=== PATIENT | female | born 1955 | race Caucasian/White ===

== ENCOUNTER → 2017-02-07 | Outpatient (REF) | payer BC | LOC: M SFHCCLAY 11:21 | PROVIDERS: ATTEND Nurse Practitioner Family | DX: N76.0 Acute vaginitis (principal) ==

== ENCOUNTER → 2017-05-25 | Outpatient (REF) | payer BC ==
[2017-05-25 11:43] LABS: MEAN CORPUSCULAR HEMOGLOBIN 30.1 pg (27.0-33.0); MEAN CORPUSCULAR HGB CONC 34.6 g/dl (32.0-36.5); RED CELL DISTRIBUTION WIDTH 13.2 % (11.5-14.5); WHITE BLOOD COUNT 4.9 K/mm3 (4.0-10.0)
[2017-05-25 12:30] LABS: ALBUMIN 3.7 GM/DL (3.2-5.2); ALBUMIN/GLOBULIN RATIO 1.09 (1.00-1.93); BILIRUBIN,TOTAL 0.6 MG/DL (0.2-1.0); CALCIUM LEVEL 8.7 MG/DL (8.5-10.1); CREATININE FOR GFR 1.12 MG/DL (0.55-1.02); POTASSIUM SERUM 4.8 MEQ/L (3.5-5.1); TOTAL PROTEIN 7.1 GM/DL (6.4-8.2)
== END ==
LOC: M SFHCCLAY 07:50
PROVIDERS: ATTEND Family Medicine
DX: K21.9 Gastro-esophageal reflux disease without esophagitis (principal); E78.00 Pure hypercholesterolemia, unspecified; M85.80 Other specified disorders of bone density and structure, unspecified site

== ENCOUNTER → 2017-06-07 | Outpatient (CLI) | payer BC ==
--- NOTE | 2017-06-07 11:50 | REPMRS ---
Patient History The patient states she has not had a clinical breast exam in over a year. Patient is postmenopausal. Family history of breast cancer in mother at age 50 or over and breast cancer in 2 paternal cousins. Benign excisional biopsy of the left breast. Took hormonal contraceptives for 2 years. Digital Woman Screen Mammo: June 07, 2017 - Exam #: [id number] Bilateral CC and MLO view(s) were taken. Technologist: Subha Gandara Technologist Prior study comparison: June 01, 2016, digital woman screen mammo performed at [facility]. June 01, 2015, digital woman screen mammo performed at [facility]. May 19, 2014, bilateral bilat screen digital mammo, performed at [facility] ([facility]). FINDINGS: There are scattered fibroglandular densities. There is a moderate amount of residual fibroglandular tissue which is fairly symmetric. There is no interval development of dominant mass, architectural distortion, or clustered microcalcification typical of malignancy. There has been no change in the appearance of the mammogram from the prior studies. ASSESSMENT: BI-RADS/ACR category 1 mammogram. Negative. Recommendation Routine screening mammogram of both breasts in 1 year (for women over age 40). This mammogram was interpreted with the aid of an FDA-approved computer-aided dectection system. Electronically Signed By: Sal Weiss MD 06/07/17 1974
== END ==
LOC: M WHC 11:07
PROVIDERS: ATTEND Family Medicine
DX: Z12.31 Encounter for screening mammogram for malignant neoplasm of breast (principal); Z78.0 Asymptomatic menopausal state; Z80.3 Family history of malignant neoplasm of breast; Z92.0 Personal history of contraception

== ENCOUNTER → 2018-06-04 | Outpatient (REF) | payer BC ==
[2018-06-04 11:50] LABS: HEMATOCRIT 40.8 % (36.0-47.0); HEMOGLOBIN 13.7 g/dl (12.0-15.5); MEAN CORPUSCULAR HEMOGLOBIN 29.1 pg (27.0-33.0); MEAN CORPUSCULAR HGB CONC 33.6 g/dl (32.0-36.5); MEAN CORPUSCULAR VOLUME 86.8 fl (80.0-96.0); PLATELET COUNT, AUTOMATED 220 10^3/uL (150-450); RED CELL DISTRIBUTION WIDTH 13.1 % (11.5-14.5); WHITE BLOOD COUNT 6.7 10^3/uL (4.0-10.0)
[2018-06-04 13:09] LABS: ALBUMIN 3.7 GM/DL (3.2-5.2); ALKALINE PHOSPHATASE 68 U/L (45-117); ALT/SGPT 15 U/L (12-78); ANION GAP 6 MEQ/L (8-16); AST/SGOT 16 U/L (7-37); BILIRUBIN,TOTAL 0.5 MG/DL (0.2-1.0); BLOOD UREA NITROGEN 19 MG/DL (7-18); CARBON DIOXIDE LEVEL 30 MEQ/L (21-32); CHLORIDE LEVEL 105 MEQ/L (98-107); CREATININE FOR GFR 1.18 MG/DL (0.55-1.30); GLOMERULAR FILTRATION RATE 49.7 (>45); GLUCOSE, FASTING 84 MG/DL (70-100); POTASSIUM SERUM 4.3 MEQ/L (3.5-5.1); SODIUM LEVEL 141 MEQ/L (136-145); TOTAL PROTEIN 7.3 GM/DL (6.4-8.2)
[2018-06-04 15:40] LABS: ALBUMIN/GLOBULIN RATIO 1.03 (1.00-1.93)
== END ==
LOC: M SFHCCLAY 08:07
DX: Z00.00 Encounter for general adult medical examination without abnormal findings (principal)
CPT/HCPCS: 84443

== ENCOUNTER → 2018-06-07 | Outpatient (CLI) | payer BC | LOC: M WHC 12:52 | DX: Z12.31 Encounter for screening mammogram for malignant neoplasm of breast (principal); Z82.62 Family history of osteoporosis; M85.851 Other specified disorders of bone density and structure, right thigh; M85.852 Other specified disorders of bone density and structure, left thigh | CPT/HCPCS: 77067 ==

== ENCOUNTER → 2019-05-30 | Outpatient (REF) | payer BC ==
[~2019-05-30] MED LIST: CIPR500T3 PO; DICL1GEL3 TOP; EXCETAB33 PO; METR-265 PO; PROBCAP14 PO; VIAC1CHW PO
[2019-05-30 11:50] LABS: HEMATOCRIT 42.6 % (36.0-47.0); HEMOGLOBIN 14.3 g/dl (12.0-15.5); MEAN CORPUSCULAR HEMOGLOBIN 29.3 pg (27.0-33.0); MEAN CORPUSCULAR HGB CONC 33.6 g/dl (32.0-36.5); MEAN CORPUSCULAR VOLUME 87.3 fl (80.0-96.0); PLATELET COUNT, AUTOMATED 216 10^3/uL (150-450); RED BLOOD COUNT 4.88 10^6/uL (4.00-5.40); WHITE BLOOD COUNT 13.8 10^3/uL (4.0-10.0)
[2019-05-30 12:32] LABS: ALBUMIN 3.8 GM/DL (3.2-5.2); BILIRUBIN,TOTAL 0.8 MG/DL (0.2-1.0); CALCIUM LEVEL 9.6 MG/DL (8.8-10.2); CHOLESTEROL RISK RATIO 2.218 (<5); CREATININE FOR GFR 1.43 MG/DL (0.55-1.30); GLOMERULAR FILTRATION RATE 39.7 (>45); POTASSIUM SERUM 4.1 MEQ/L (3.5-5.1); THYROID STIMULATING HORMONE 1.36 uIU/ML (0.358-3.740); TOTAL PROTEIN 7.2 GM/DL (6.4-8.2)
== END ==
LOC: M SFHCCLAY 07:27
PROVIDERS: ATTEND Family Medicine
DX: Z00.00 Encounter for general adult medical examination without abnormal findings (principal); E78.00 Pure hypercholesterolemia, unspecified; K57.30 Diverticulosis of large intestine without perforation or abscess without bleeding

== ENCOUNTER → 2019-06-05 | Outpatient (REF) | payer BC ==
[2019-06-05 17:25] LABS: ALBUMIN 3.6 GM/DL (3.2-5.2); BILIRUBIN,TOTAL 0.6 MG/DL (0.2-1.0); CALCIUM LEVEL 9.7 MG/DL (8.8-10.2); CREATININE FOR GFR 1.23 MG/DL (0.55-1.30); GLOMERULAR FILTRATION RATE 47.3 (>45); POTASSIUM SERUM 4.1 MEQ/L (3.5-5.1); TOTAL PROTEIN 7.3 GM/DL (6.4-8.2)
[2019-06-05 17:27] LABS: BASO # 0.1 10^3/uL (0.0-0.2); BASO % 0.6 % (0.0-1.0); EOS # 0.2 10^3/uL (0.0-0.5); EOS % 1.8 % (0.0-3.0); HEMATOCRIT 42.1 % (36.0-47.0); HEMOGLOBIN 14.1 g/dl (12.0-15.5); LYMPH # 2.1 10^3/uL (1.5-5.0); LYMPH % 16.8 % (24.0-44.0); MEAN CORPUSCULAR HEMOGLOBIN 29.6 pg (27.0-33.0); MEAN CORPUSCULAR HGB CONC 33.5 g/dl (32.0-36.5); MEAN CORPUSCULAR VOLUME 88.3 fl (80.0-96.0); MONO % 8.3 % (0.0-5.0); NEUTROPHILS # 8.9 10^3/uL (1.5-8.5); PLATELET COUNT, AUTOMATED 291 10^3/uL (150-450); RED BLOOD COUNT 4.77 10^6/uL (4.00-5.40); WHITE BLOOD COUNT 12.4 10^3/uL (4.0-10.0)
== END ==
LOC: M SFHCCLAY 09:22
PROVIDERS: ATTEND Family Medicine
DX: K57.92 Diverticulitis of intestine, part unspecified, without perforation or abscess without bleeding (principal)

== ENCOUNTER 2019-06-07 01:26 | Inpatient (IN) | payer BC ==
[~2019-06-07] VITALS: Ht 162.6 cm; Wt 64.2 kg
[2019-06-07 02:40] LABS: BASO # 0.1 10^3/uL (0.0-0.2); BASO % 0.7 % (0.0-1.0); EOS # 0.3 10^3/uL (0.0-0.5); EOS % 2.1 % (0.0-3.0); HEMATOCRIT 39.7 % (36.0-47.0); HEMOGLOBIN 13.4 g/dl (12.0-15.5); LYMPH # 1.9 10^3/uL (1.5-5.0); LYMPH % 13.5 % (24.0-44.0); MEAN CORPUSCULAR HEMOGLOBIN 29.5 pg (27.0-33.0); MEAN CORPUSCULAR HGB CONC 33.8 g/dl (32.0-36.5); MEAN CORPUSCULAR VOLUME 87.3 fl (80.0-96.0); MONO # 1.3 10^3/uL (0.0-0.8); MONO % 9.5 % (0.0-5.0); NEUTROPHILS # 10.4 10^3/uL (1.5-8.5); NEUTROPHILS % 73.6 % (36.0-66.0); PLATELET COUNT, AUTOMATED 283 10^3/uL (150-450); RED BLOOD COUNT 4.55 10^6/uL (4.00-5.40); WHITE BLOOD COUNT 14.1 10^3/uL (4.0-10.0)
[2019-06-07 03:05] LABS: ALBUMIN 3.3 GM/DL (3.2-5.2); ALT/SGPT 13 U/L (12-78); BILIRUBIN,DIRECT 0.2 MG/DL (0.0-0.2); BILIRUBIN,TOTAL 0.5 MG/DL (0.2-1.0); BLOOD UREA NITROGEN 9 MG/DL (7-18); CALCIUM LEVEL 9.2 MG/DL (8.8-10.2); CARBON DIOXIDE LEVEL 28 MEQ/L (21-32); CHLORIDE LEVEL 100 MEQ/L (98-107); CREATININE FOR GFR 1.36 MG/DL (0.55-1.30); GLOMERULAR FILTRATION RATE 42.1 (>45); GLUCOSE, FASTING 123 MG/DL (70-100); LIPASE 159 U/L (73-393); POTASSIUM SERUM 3.8 MEQ/L (3.5-5.1); SODIUM LEVEL 136 MEQ/L (136-145); TOTAL PROTEIN 7.2 GM/DL (6.4-8.2)
[2019-06-07] MEDS ORDERED: NS 1,000 ML IV ONE ×2 (04:30→22:15)
[2019-06-07] MEDS ORDERED: ONDANSETRON 4MG/2ML VIAL (J2405) As Ordered ONE (05:09)
[2019-06-07] MEDS ORDERED: MORPHINE 4 MG/ML 1ML VIAL/SYRINGE (J2270) As Ordered ONE (05:09)
[2019-06-07] MEDS ORDERED: ACETAMINOPHEN 325 MG TAB As Ordered ONE (05:10)
[2019-06-07] MEDS: MORPHINE 4 MG/ML 1ML VIAL/SYRINGE (J2270) IV PRN ×2 (05:14→09:56)
[2019-06-07] MEDS ORDERED: ACETAMINOPHEN TAB 650MG DOSE (2X325MG) PO ONE (05:15)
[2019-06-07] MEDS ORDERED: ONDANSETRON 4MG/2ML VIAL (J2405) IV ONE (05:15)
[2019-06-07] MEDS ORDERED: ISOVUE-370 76% 100ML VIAL (Q9967) As Ordered ONE (05:17)
--- NOTE | 2019-06-07 06:35 | REPVR ---
EXAM: CT Abdomen and Pelvis With Contrast EXAM DATE/TIME: 06/07/2019 5:12 AM CLINICAL HISTORY: 63 years old, female; Abdominal pain; Localized; Left lower quadrant (llq); Additional info: Llq abd pain, HX of divertic TECHNIQUE: Imaging protocol: Computed tomography of the abdomen and pelvis with intravenous contrast. Radiation optimization: All CT scans at this facility use at least one of these dose optimization techniques: automated exposure control; mA and/or kV adjustment per patient size (includes targeted exams where dose is matched to clinical indication); or iterative reconstruction. Contrast material: ISO; Contrast volume: 100 ml; Contrast route: AC; COMPARISON: No relevant prior studies available. FINDINGS: Liver: There is ill-defined mildly enhancing process in the right hepatic lobe on axial image 17. Gallbladder and bile ducts: The patient is status post cholecystectomy. The CBD is dilated measuring up to 1.1 cm. Pancreas: There is mild pancreatic ductal dilatation measuring up to 5 mm in the head region. Spleen: Normal. No splenomegaly. Adrenals: Normal. No mass. Kidneys and ureters: Normal. No hydronephrosis. Stomach and bowel: There is extensive sigmoid colon diverticulosis with thickening of the colon in the pelvis coupled with significant pericolonic stranding. Appendix: No evidence of appendicitis. Intraperitoneal space: Unremarkable. No free air. No significant fluid collection. Vasculature: Unremarkable. No abdominal aortic aneurysm. Lymph nodes: Unremarkable. No enlarged lymph nodes. Bladder: Unremarkable as visualized. Reproductive: The patient is status post hysterectomy. There is no adnexal mass. Bones/joints: Unremarkable. No acute fracture. Soft tissues: Unremarkable. IMPRESSION: 1. Sigmoid colon diverticulosis with CT findings of acute diverticulitis. No abscess formation seen at this time. 2. Status post cholecystectomy. 3. Diffusely dilated CBD up to 1.1 cm with mild pancreatic ductal dilatation at 5 mm. Ampullary stricture or obstructive process cannot be excluded. Correlate with patient's symptoms, LFTs and bilirubin level. If indicated MRCP may be obtained for further evaluation. 4. 1.4 cm faint ill defined right hepatic dome hyperdensity. Further evaluation with MRI of the liver with contrast and correlation with clinical history and AFP is suggested. Electronically signed by: Wojciech Lopez On 06/07/2019 06:34:29 AM
[2019-06-07] MEDS ORDERED: PIPERACILLIN/TAZOBACTAM SOD 3.375 GM in D5W MINI-BAG PLUS 50 ML IV ONE (07:15)
[2019-06-07] MEDS ORDERED: VIAC1CHW PO (07:47)
[2019-06-07] MEDS ORDERED: PROBCAP14 PO (07:47)
[2019-06-07] MEDS ORDERED: DICL1GEL3 TOP (07:47)
[2019-06-07] MEDS ORDERED: CIPR500T3 PO ×2 (07:47)
[2019-06-07] MEDS ORDERED: METR-265 PO (07:47)
[2019-06-07] MEDS ORDERED: EXCETAB33 PO (07:47)
[2019-06-07] MEDS: NS 1,000 ML IV SCH (13:03)
[2019-06-07 13:15] VITALS: BP 104/59
[2019-06-07] MEDS ORDERED: ONDANSETRON 4MG/2ML VIAL (J2405) IV PRN (13:15)
[2019-06-07] MEDS ORDERED: MORPHINE 4 MG/ML 1ML VIAL/SYRINGE (J2270) IV PRN (13:15)
--- NOTE | 2019-06-07 13:25 | HPEPDOC ---
General Date of Admission 06/07/2019 Date of Service: Jun 07, 2019 Chief Complaint The patient is a 63-year-old female admitted with a reason for visit of Abd Pain. Source: Patient, RN/MD, Old records Exam Limitations: No limitations Severity: Moderate History of Present Illness 63 year old female with PMH of diverticulosis and diverticutitis (last attack 5 years ago), sciatica presented to the ED with abdominal pain for 12 days. She was diagnosed with diverticulitis on 05/30 and started on oral antibiotics. She went to see her PMD again on 03/05 when she was due for her annual check up and said her pain has not improved at all so antibiotics were changed to cipro and flagyl which she has been taking for the past 2 days but overnight her pain had worsened a lot and she could not tolerate it any more and came ot the ED. SHe has been constipated for the past 2 weeks as she had pulled a mucle at her lower back 2 weeks ago and her sciatica was bothering her and she was taking ibuprofens. So earlier this week she took miralax and now is having diarrhea also. no blood in stool. He abdominal pain is located in the left illiac fossa and hypogastrium, Dull aching in nature, 7/10 in intensity . it goes up to the left upper quadrant. CT abdomen an dpelvis shows Sigmoid colon diverticulosis with CT findings of acute diverticulitis. No abscess formation seen at this time. Pateint admitted for acute diverticulitis. Home Medications Scheduled Calcium Carb/Vitamin D3/Vit K1 (Viactiv 650 mg-12.5 Mcg Chew) 1 Each Tab.chew, 1 CHEW PO DAILY, (Reported) Ciprofloxacin HCl (Ciprofloxacin HCl) 500 Mg Tablet, 500 MG PO BID, (Reported) STARTED 06/05 FOR 10 DAYS Lactobacillus Acidophilus (Probiotic) 1 Each Capsule, 1 CAP PO DAILY, (Reported) Metronidazole (Metronidazole) 500 Mg Tablet, 500 MG PO TID, (Reported) STARTED 06/05 FOR 10 DAYS Scheduled PRN Aspirin/Acetaminophen/Caffeine (Excedrin Migraine Caplet) 1 Each Tablet, 2 TAB PO DAILY PRN for HEADACHE, (Reported) Diclofenac Sodium (Diclofenac Sodium) 1% 100GM Gel..gram., 1 APLCT TOP QID PRN for ARTHRITIS, (Reported) APPLY TO HAND PRN Allergies Coded Allergies: cephalexin (Verified Allergy, Mild, RASH, 06/07/19) RASH nitrofurantoin (Verified Allergy, Mild, RASH, 06/07/19) RASH betamethasone (Unverified Allergy, Unknown, RASH, 06/07/19) Past Medical History Medical History LOW BACK PAIN WITH SCIATICA ENDOMETRIOSIS SCIATICA PANCREATIC STONES CHRONIC CONSTIPATION DIVERTICULAR DISEASE Surgical History TUBAL LIGATION VAG HYST WITH OOPHORECTOMY 06/2008 ROGER BUNIONS LUMP ON BREAST COLONOSCOPY 2007 CHOLECYSTECTOMY PANCREATIC STONES REMOVED 09/2013 Family History FATHER: , AGE HISTORY OF STROKE MOTHER: , AGE 81, HISTORY OF BREAST CANCER. SIBLINGS: BROTHER FROM [place] 2 BROTHER(S) , 1 SISTER(S) . 1 BROTHER DIABETIC.ONE BROTHER [place]EMIA -- Social History * Smoker: Denies Alcohol: occationally Drugs: denies A-FIB/CHADSVASC A-FIB History Current/History of A-Fib/PAF?: No Review of Systems Constitutional: Reports: Fever, Fatigue Eyes: Denies: Pain, Vision change ENT: Denies: Head Aches, Ear Pain, Dysphagia Skin: Denies: Rash, Lesions, Breakdown Pulmonary: Denies: Dyspnea, Cough Cardiovascular: Denies: Chest Pain, Palpitations, Orthopnea, Paroxysmal Noc. Dyspnea, Lt Headedness Gastrointestinal: Reports: Nausea, Abdominal Pain, Diarrhea, Constipation Genitourinary: Reports: Frequency; Denies: Dysuria, Incontinence, Hematuria Hematologic: Denies: Bruising, Bleeding Excessively Musculoskeletal: Denies: Neck Pain, Back Pain, Joint Pain, Muscle Pain, Spasms Neurological: Denies: Weakness, Numbness, Change in speech, Confusion Physical Examination General Exam: Positive: Alert, Cooperative, No Acute Distress Eye Exam: Positive: PERRLA, Conjunctiva & lids normal, EOMI; Negative: Sclera icteric ENT Exam: Positive: Atraumatic, Mucous membr. moist/pink, Pharynx Normal Neck Exam: Positive: Supple; Negative: JVD, thyromegaly Chest Exam: Positive: Clear to auscultation, Normal air movement Heart Exam: Positive: Rate Normal, Regular Rhythm, Normal S1, Normal S2; Negative: Murmurs, Rubs Abdomen Exam: Positive: BS Hyperactive, Soft, Tenderness (left illiac fossa and hypogastrium), Other (there is local rebound but no guaring or rigidity) Extremity Exam: Positive: Normal pulses; Negative: Clubbing, Cyanosis, Edema Skin Exam: Positive: Nl turgor and temperature; Negative: Breakdown, Lesion Neuro Exam: Positive: Normal Gait, Normal Speech, Cranial Nerves 3-12 NL Psych Exam: Positive: Mental status NL, Mood NL, Oriented x 3 Vital Signs Vital Signs Date Time Temp Pulse Resp B/P (MAP) Pulse Ox O2 Delivery O2 Flow Rate FiO2 06/07/19 09:59 97.0 64 101/59 (73) 06/07/19 09:56 16 96 06/07/19 05:51 Room Air Laboratory Data Labs 24H Laboratory Tests 2 06/07/19 02:19: Immature Granulocyte % (Auto) 0.6, White Blood Count 14.1H, Red Blood Count 4.55, Hemoglobin 13.4, Hematocrit 39.7, Mean Corpuscular Volume 87.3, Mean Corpuscular Hemoglobin 29.5, Mean Corpuscular Hemoglobin Concent 33.8, Red Cell Distribution Width 13.2, Platelet Count 283, Neutrophils (%) (Auto) 73.6H, Lymphocytes (%) (Auto) 13.5L, Monocytes (%) (Auto) 9.5H, Eosinophils (%) (Auto) 2.1, Basophils (%) (Auto) 0.7, Neutrophils # (Auto) 10.4H, Lymphocytes # (Auto) 1.9, Monocytes # (Auto) 1.3H, Eosinophils # (Auto) 0.3, Basophils # (Auto) 0.1, Nucleated Red Blood Cells % (auto) 0.0, Anion Gap 8, Glomerular Filtration Rate 42.1L, Calcium Level 9.2, Aspartate Amino Transf (AST/SGOT) 16, Alanine Aminotransferase (ALT/SGPT) 13, Alkaline Phosphatase 65, Total Bilirubin 0.5, Direct Bilirubin 0.2, Total Protein 7.2, Albumin 3.3, Albumin/Globulin Ratio 0.85L, Lipase 159 06/07/19 02:21: Urine Color YELLOW, Urine Appearance CLEAR, Urine pH 5.0, Urine Specific [place] 1.015, Urine Protein NEGATIVE, Urine Glucose (UA) NEGATIVE, Urine Ketones TRACEH, Urine Blood 1+H, Urine Nitrite NEGATIVE, Urine Bilirubin NEGATIVE, Urine Urobilinogen 0.2, Urine Leukocyte Esterase 2+H, Urine WBC (Auto) 9H, Urine RBC (Auto) 4H, Urine Hyaline Casts (Auto) 0, Urine Bacteria (Auto) NEGATIVE, Urine Squamous Epithelial Cells 1, Urine Mucus (Auto) SMALL, Urine Sperm (Auto) CBC/BMP Laboratory Tests 06/07/19 02:19 Red Blood Count 4.55, Mean Corpuscular Volume 87.3, Mean Corpuscular Hemoglobin 29.5, Mean Corpuscular Hemoglobin Concent 33.8, Red Cell Distribution Width 13.2, Neutrophils (%) (Auto) 73.6 H, Lymphocytes (%) (Auto) 13.5 L, Monocytes (%) (Auto) 9.5 H, Eosinophils (%) (Auto) 2.1, Basophils (%) (Auto) 0.7, Neutrophils # (Auto) 10.4 H, Lymphocytes # (Auto) 1.9, Monocytes # (Auto) 1.3 H, Eosinophils # (Auto) 0.3, Basophils # (Auto) 0.1 Microbiology Microbiology 06/07/19 Blood Culture, Received Pending 06/07/19 Blood Culture, Received Pending 06/07/19 Urine Culture, Received Pending Assessment/Plan 63 year old female with PMH of diverticulosis and diverticulitis (last attack 5 years ago), sciatica presented to the ED with abdominal pain for 12 days. She was diagnosed with diverticulitis on 05/30 and started on oral antibiotics. She went to see her PMD again on 03/05 when she was due for her annual check up and said her pain has not improved at all so antibiotics were changed to cipro and flagyl which she has been taking for the past 2 days but overnight her pain had worsened a lot and she could not tolerate it any more and came ot the ED. She has been constipated for the past 2 weeks as she had pulled a muscle at her lower back 2 weeks ago and her sciatica was bothering her and she was taking ibuprofen. So earlier this week she took miralax and now is having diarrhea also. no blood in stool. He abdominal pain is located in the left illiac fossa and hypogastrium, Dull aching in nature, 7/10 in intensity . it goes up to the left upper quadrant. CT abdomen an dpelvis shows Sigmoid colon diverticulosis with CT findings of acute diverticulitis. No abscess formation seen at this time. Patient admitted for acute diverticulitis. Acute diverticulitis will give Zosyn clear liquids and IVF pain control with morphine prn and zofran. KAREEM possibly due to NSAIDS that she was taking for the past 2 weeks now stopped. will continue to monitor Chronic low back pain with sciatica had a flare 2 weeks ago after she pulled a muscle while bending forward and turning. now better. Mild pancreatic ductal dilatation at 5 mm. Ampullary stricture or obstructive process cannot be excluded. Her LFTs are normal. As per radiologist MRCP may be obtained for further evaluation. I leave it to the discretion of the PMD whether to get MRI or Not. 1.4 cm faint ill defined right hepatic dome hyperdensity. I spoke with Dr Lee radiologist and he thinks its a hepatic blush which is very commonly seen in contrast studies but suggested further evaluation with MRI of the liver with contrast can be obtained as outpateint if deemed necessary. I have ordered AFP and CEA Plan / VTE VTE Prophylaxis Ordered?: Yes RASHAAD BERNARDO MD Jun 07, 2019 10:26
[2019-06-07] MEDS: PIPERACILLIN/TAZOBACTAM SOD 3.375 GM in D5W MINI-BAG PLUS 50 ML IV SCH ×2 (15:02→20:00)
[2019-06-07 21:27] VITALS: BP 82/46
[2019-06-07 22:00] VITALS: BP 82/46
[2019-06-07 23:58] VITALS: BP 91/54
[2019-06-08] MEDS: PIPERACILLIN/TAZOBACTAM SOD 3.375 GM in D5W MINI-BAG PLUS 50 ML IV SCH ×4 (02:09→20:26)
[2019-06-08] MEDS: NS 1,000 ML IV SCH (02:20)
[2019-06-08 06:00] VITALS: BP 89/52
[2019-06-08 06:46] LABS: BASO # 0.1 10^3/uL (0.0-0.2); EOS # 0.3 10^3/uL (0.0-0.5); EOS % 4.5 % (0.0-3.0); HEMATOCRIT 30.6 % (36.0-47.0); LYMPH # 1.7 10^3/uL (1.5-5.0); MEAN CORPUSCULAR HEMOGLOBIN 28.7 pg (27.0-33.0); MEAN CORPUSCULAR HGB CONC 33.3 g/dl (32.0-36.5); MONO # 0.7 10^3/uL (0.0-0.8); MONO % 9.6 % (0.0-5.0); NEUTROPHILS # 4.2 10^3/uL (1.5-8.5); NEUTROPHILS % 60.5 % (36.0-66.0); PLATELET COUNT, AUTOMATED 224 10^3/uL (150-450); RED BLOOD COUNT 3.56 10^6/uL (4.00-5.40)
[2019-06-08 06:56] LABS: HEMOGLOBIN 10.2 g/dl (12.0-15.5)
[2019-06-08 07:09] LABS: CALCIUM LEVEL 8.3 MG/DL (8.8-10.2); CREATININE FOR GFR 1.32 MG/DL (0.55-1.30); GLOMERULAR FILTRATION RATE 43.6 (>45); POTASSIUM SERUM 3.9 MEQ/L (3.5-5.1)
[2019-06-08] MEDS ORDERED: ENOXAPARIN 30 MG/0.3 ML SYR (J1650) SC SCH (09:00)
[2019-06-08 14:00] VITALS: BP 102/56
[2019-06-08] MEDS ORDERED: FLUCONAZOLE 50MG TABLET PO ONE (14:00)
--- NOTE | 2019-06-08 14:49 | REP ---
REASON FOR EXAM: Abdominal pain. Patient is status post cholecystectomy. The pancreatic duct is normal. The common bile duct is within normal limits with a maximal dimension of 8 mm. There is no evidence of intrahepatic ductal dilatation. There is a cystic duct remnant noted, also within normal limits. There is significant respiratory motion artifact on multiple source images. There is no free fluid in the abdomen. There are no abnormal filling defects seen in the common bile duct or in the pancreatic duct. IMPRESSION: MRCP is within normal limits. Maximal CBD dimension is 8 mm, which is within normal limits in this age group status post cholecystectomy. Electronically Signed by David Lee DO 06/08/2019 03:38 P
[2019-06-08] MEDS: KCL 20MEQ IN 0.45NS 1000ML 1,000 ML IV SCH (15:29)
[2019-06-08 20:00] VITALS: BP 104/58
[2019-06-08] MEDS: MICONAZOLE-7 VAGINAL 2% CREAM 47.7 GM PV SCH (20:26)
[2019-06-09] MEDS: KCL 20MEQ IN 0.45NS 1000ML 1,000 ML IV SCH ×3 (00:02→20:34)
[2019-06-09] MEDS: PIPERACILLIN/TAZOBACTAM SOD 3.375 GM in D5W MINI-BAG PLUS 50 ML IV SCH ×4 (02:32→20:30)
[2019-06-09 05:00] VITALS: BP 100/53
[2019-06-09 07:15] LABS: BASO # 0.1 10^3/uL (0.0-0.2); BASO % 1.1 % (0.0-1.0); EOS # 0.2 10^3/uL (0.0-0.5); EOS % 4.5 % (0.0-3.0); HEMATOCRIT 30.5 % (36.0-47.0); HEMOGLOBIN 10.5 g/dl (12.0-15.5); LYMPH # 1.4 10^3/uL (1.5-5.0); LYMPH % 26.5 % (24.0-44.0); MEAN CORPUSCULAR HEMOGLOBIN 30.1 pg (27.0-33.0); MEAN CORPUSCULAR HGB CONC 34.4 g/dl (32.0-36.5); MEAN CORPUSCULAR VOLUME 87.4 fl (80.0-96.0); MONO # 0.5 10^3/uL (0.0-0.8); MONO % 8.8 % (0.0-5.0); NEUTROPHILS # 3.2 10^3/uL (1.5-8.5); NEUTROPHILS % 58.7 % (36.0-66.0); PLATELET COUNT, AUTOMATED 223 10^3/uL (150-450); RED BLOOD COUNT 3.49 10^6/uL (4.00-5.40); WHITE BLOOD COUNT 5.4 10^3/uL (4.0-10.0)
[2019-06-09 07:35] LABS: CALCIUM LEVEL 8.6 MG/DL (8.8-10.2); CREATININE FOR GFR 1.15 MG/DL (0.55-1.30); GLOMERULAR FILTRATION RATE 51.1 (>45)
--- NOTE | 2019-06-09 09:06 | IPNPDOC ---
Subjective Date Seen The patient was seen on 06/09/19. Subjective Chief Complaint/HPI abdominal pain less, but having diarrhea Constitutional: Denies: Chills ENT: Denies: Head Aches Skin: Denies: Rash Pulmonary: Denies: Dyspnea Cardiovascular: Denies: Chest Pain, Orthopnea Gastrointestinal: Reports: Abdominal Pain (LLQ better), Diarrhea; Denies: Nausea, Vomiting Genitourinary: Denies: Dysuria Hematologic: Denies: Bruising Neurological: Denies: Weakness Psych: Reports: Mood Normal Objective Physical Examination General Exam: Positive: Alert, Cooperative, No Acute Distress Eye Exam: Positive: PERRLA, Conjunctiva & lids normal, EOMI; Negative: Sclera icteric ENT Exam: Positive: Atraumatic, Mucous membr. moist/pink, Pharynx Normal Neck Exam: Positive: Supple; Negative: JVD, thyromegaly Chest Exam: Positive: Clear to auscultation, Normal air movement Heart Exam: Positive: Rate Normal, Regular Rhythm, Normal S1, Normal S2; Negative: Murmurs, Rubs Abdomen Exam: Positive: Normal bowel sounds, Soft, Tenderness (LLQ primarily, no rebound. Bowel sounds are active.), Other (there is local rebound but no guaring or rigidity) Extremity Exam: Positive: Normal pulses; Negative: Clubbing, Cyanosis, Edema Skin Exam: Positive: Nl turgor and temperature; Negative: Breakdown, Lesion Neuro Exam: Positive: Normal Gait, Normal Speech, Cranial Nerves 3-12 NL Psych Exam: Positive: Mental status NL, Mood NL, Oriented x 3 Assessment /Plan Problems (1) Acute diverticulitis Status: Acute Response to Treatment: Improving Problem Text: continue zosyn, add metronidazole. diarrhea may be due to colonic irritation but concern for C diff exists so will do GI panel. her abdominal pain is clearly better than at last outpt visit and improved since admission. WBC also normal. (2) KAREEM (acute kidney injury) Status: Resolved Problem Text: Likely combination of decreased po intake due to abdominal discomfort and effect of NSAID use as outpatient. Plan/VTE VTE Prophylaxis Ordered?: Yes Plan Anticipated Discharge: Home VS, I&O, 24H, Fishbone Vital Signs/I&O Vital Signs Date Time Temp Pulse Resp B/P (MAP) Pulse Ox O2 Delivery O2 Flow Rate FiO2 06/09/19 05:00 98.4 57 16 100/53 (69) 98 06/07/19 12:17 Room Air I&O- Last 24 Hours up to 6 AM 06/09/19 06:00 Intake Total 2550 ml Output Total 3375 ml Balance -825 ml Laboratory Data 24H LABS Laboratory Tests 2 06/09/19 07:01: Immature Granulocyte % (Auto) 0.4, White Blood Count 5.4, Red Blood Count 3.49L, Hemoglobin 10.5L, Hematocrit 30.5L, Mean Corpuscular Volume 87.4, Mean Corpuscular Hemoglobin 30.1, Mean Corpuscular Hemoglobin Concent 34.4, Red Cell Distribution Width 13.4, Platelet Count 223, Neutrophils (%) (Auto) 58.7, Lymphocytes (%) (Auto) 26.5, Monocytes (%) (Auto) 8.8H, Eosinophils (%) (Auto) 4.5H, Basophils (%) (Auto) 1.1H, Neutrophils # (Auto) 3.2, Lymphocytes # (Auto) 1.4L, Monocytes # (Auto) 0.5, Eosinophils # (Auto) 0.2, Basophils # (Auto) 0.1, Nucleated Red Blood Cells % (auto) 0.0, Anion Gap 7L, Glomerular Filtration Rate 51.1, Blood Urea Nitrogen 5L, Creatinine 1.15, Sodium Level 144, Potassium Level 4.0, Chloride Level 111H, Carbon Dioxide Level 26, Calcium Level 8.6L CBC/BMP Laboratory Tests 06/09/19 07:01 Red Blood Count 3.49 L, Mean Corpuscular Volume 87.4, Mean Corpuscular Hemoglobin 30.1, Mean Corpuscular Hemoglobin Concent 34.4, Red Cell Distribution Width 13.4, Neutrophils (%) (Auto) 58.7, Lymphocytes (%) (Auto) 26.5, Monocytes (%) (Auto) 8.8 H, Eosinophils (%) (Auto) 4.5 H, Basophils (%) (Auto) 1.1 H, Neutrophils # (Auto) 3.2, Lymphocytes # (Auto) 1.4 L, Monocytes # (Auto) 0.5, Eosinophils # (Auto) 0.2, Basophils # (Auto) 0.1, Calcium Level 8.6 L Microbiology Microbiology 06/07/19 Blood Culture - Preliminary, Resulted No Growth after 48 hours. All Specime... 06/07/19 Blood Culture - Preliminary, Resulted No Growth after 48 hours. All Specime... 06/07/19 Urine Culture - Final, Complete Ge Sebastian MD Jun 09, 2019 09:06
[2019-06-09] MEDS: ENOXAPARIN 40 MG/0.4 ML SYRINGE (J1650) SC SCH (09:15)
[2019-06-09] MEDS: metroNIDAZOLE 500 MG in APPROPRIATE DILUENT 1 EA IV SCH ×2 (10:46→17:32)
[2019-06-09] MEDS: LACTOBACILLUS ACIDOPHILUS CAP (BACID) PO SCH ×2 (12:18→20:30)
[2019-06-09 14:00] VITALS: BP 145/60
[2019-06-09 20:00] VITALS: BP 105/57
[2019-06-09] MEDS: MICONAZOLE-7 VAGINAL 2% CREAM 47.7 GM PV SCH (20:35)
[2019-06-10] MEDS: metroNIDAZOLE 500 MG in APPROPRIATE DILUENT 1 EA IV SCH ×3 (00:06→16:37)
[2019-06-10] MEDS: PIPERACILLIN/TAZOBACTAM SOD 3.375 GM in D5W MINI-BAG PLUS 50 ML IV SCH ×4 (01:16→20:44)
[2019-06-10 04:00] VITALS: BP 107/51
[2019-06-10] MEDS: KCL 20MEQ IN 0.45NS 1000ML 1,000 ML IV SCH (05:46)
[2019-06-10 06:58] LABS: BASO # 0.1 10^3/uL (0.0-0.2); BASO % 1.1 % (0.0-1.0); EOS # 0.2 10^3/uL (0.0-0.5); EOS % 3.8 % (0.0-3.0); HEMATOCRIT 32.2 % (36.0-47.0); HEMOGLOBIN 10.8 g/dl (12.0-15.5); LYMPH # 1.7 10^3/uL (1.5-5.0); LYMPH % 26.5 % (24.0-44.0); MEAN CORPUSCULAR HEMOGLOBIN 28.3 pg (27.0-33.0); MEAN CORPUSCULAR HGB CONC 33.5 g/dl (32.0-36.5); MEAN CORPUSCULAR VOLUME 84.3 fl (80.0-96.0); MONO # 0.6 10^3/uL (0.0-0.8); MONO % 8.8 % (0.0-5.0); NEUTROPHILS # 3.8 10^3/uL (1.5-8.5); NEUTROPHILS % 59.3 % (36.0-66.0); PLATELET COUNT, AUTOMATED 256 10^3/uL (150-450); RED BLOOD COUNT 3.82 10^6/uL (4.00-5.40); WHITE BLOOD COUNT 6.4 10^3/uL (4.0-10.0)
[2019-06-10 07:30] LABS: CALCIUM LEVEL 8.8 MG/DL (8.8-10.2); CREATININE FOR GFR 1.27 MG/DL (0.55-1.30); GLOMERULAR FILTRATION RATE 45.5 (>45); POTASSIUM SERUM 3.7 MEQ/L (3.5-5.1)
[2019-06-10] MEDS: ENOXAPARIN 40 MG/0.4 ML SYRINGE (J1650) SC SCH (09:06)
[2019-06-10] MEDS: LACTOBACILLUS ACIDOPHILUS CAP (BACID) PO SCH ×2 (09:06→20:48)
--- NOTE | 2019-06-10 10:24 | IPN ---
DATE OF VISIT: 06/08/2019 Estefany was admitted last night to the hospitalist's group with acute sigmoid diverticulosis with acute diverticulitis. She had abnormal findings in her liver and pancreas with diffusely dilated common bile duct with bile pancreatic dilatation, ampullary stricture or obstructive process could not be excluded. Magnetic Resonance Cholangiopancreatography (MRCP) was suggested. She also had a 1.4 cm faintly defined lesion in the right hepatic dome. Further workup with MRI suggested. Clinically she feels better. She appears to have some vulvovaginitis symptoms and some urinary leaking which is a new problem for her. PHYSICAL EXAMINATION: VITAL SIGNS: Afebrile. Systolic blood pressure is in the 90s. (I have looked through her office record. Her systolic pressure is around 100 at baseline). LUNGS: Clear. ABDOMEN: Soft, tender in left lower quadrant. No costovertebral angle (CVA) tenderness. No peripheral edema. LABORATORY DATA: White count is down to 7. Hemoglobin 10.2, platelets 224. Sodium 140, potassium 3.9, BUN 7, creatinine 1.3. Alpha fetoprotein normal. IMPRESSION: 1. Diverticulitis. Continue her Zosyn. She seems to be clinically responding to this, changing her intravenous fluids to half normal saline with supplemental potassium. This could probably be discontinued tomorrow. 2. Chronic kidney disease Stage III. Dose medications based on renal function. She is on reduced also Lovenox. 3. Abnormal common bile duct . Magnetic Resonance Cholangiopancreatography (MRCP) ordered for tomorrow. 4. Abnormal CT of the liver. MRI of the liver ordered for tomorrow.
--- NOTE | 2019-06-10 10:59 | IPNPDOC ---
Subjective Date Seen The patient was seen on 06/10/19. Subjective Chief Complaint/HPI still reports loose stool, 3 episodes this am she says. no pain but still some nausea. Constitutional: Denies: Chills ENT: Denies: Head Aches Skin: Denies: Rash Pulmonary: Denies: Dyspnea, Cough Cardiovascular: Denies: Chest Pain, Orthopnea Gastrointestinal: Reports: Nausea, Abdominal Pain (decreased compared to earlier in admission), Diarrhea; Denies: Vomiting Genitourinary: Denies: Dysuria Hematologic: Denies: Bruising Endocrine: Denies: Polydipsia Neurological: Denies: Weakness Psych: Reports: Mood Normal Objective Physical Examination General Exam: Positive: Alert, Cooperative, No Acute Distress Eye Exam: Positive: PERRLA, Conjunctiva & lids normal, EOMI; Negative: Sclera icteric ENT Exam: Positive: Atraumatic, Mucous membr. moist/pink, Pharynx Normal Neck Exam: Positive: Supple; Negative: JVD, thyromegaly Chest Exam: Positive: Clear to auscultation, Normal air movement Heart Exam: Positive: Rate Normal, Regular Rhythm, Normal S1, Normal S2; Negative: Murmurs, Rubs Abdomen Exam: Positive: Normal bowel sounds, Soft, Tenderness (no pain, no guarding, no mass and no rebound. no pelvic shake tenderness.), Other (there is local rebound but no guaring or rigidity) Extremity Exam: Positive: Normal pulses; Negative: Clubbing, Cyanosis, Edema Skin Exam: Positive: Nl turgor and temperature; Negative: Breakdown, Lesion Neuro Exam: Positive: Normal Gait, Normal Speech, Cranial Nerves 3-12 NL Psych Exam: Positive: Mental status NL, Mood NL, Oriented x 3 Assessment /Plan Problems (1) Acute diverticulitis Status: Acute Response to Treatment: Improving Problem Text: 06/10: decreasing discomfort. still some loose stool. GI panel negative. continue zosyn and metronidazole. advance diet continue zosyn, add metronidazole. diarrhea may be due to colonic irritation but concern for C diff exists so will do GI panel. her abdominal pain is clearly better than at last outpt visit and improved since admission. WBC also normal. (2) KAREEM (acute kidney injury) Status: Resolved Problem Text: Likely combination of decreased po intake due to abdominal discomfort and effect of NSAID use as outpatient. Plan/VTE VTE Prophylaxis Ordered?: Yes Plan Anticipated Discharge: Home VS, I&O, 24H, [facility] Vital Signs/I&O Vital Signs Date Time Temp Pulse Resp B/P (MAP) Pulse Ox O2 Delivery O2 Flow Rate FiO2 06/10/19 04:00 98.5 57 17 107/51 (69) 96 06/07/19 12:17 Room Air I&O- Last 24 Hours up to 6 AM 06/10/19 06:00 Intake Total 2010 ml Output Total 2150 ml Balance -140 ml Laboratory Data 24H LABS Laboratory Tests 2 06/10/19 06:36: Immature Granulocyte % (Auto) 0.5, White Blood Count 6.4, Red Blood Count 3.82L, Hemoglobin 10.8L, Hematocrit 32.2L, Mean Corpuscular Volume 84.3, Mean Corpuscul ar Hemoglobin 28.3, Mean Corpuscular Hemoglobin Concent 33.5, Red Cell Distribution Width 13.2, Platelet Count 256, Neutrophils (%) (Auto) 59.3, Lymphocytes (%) (Auto) 26.5, Monocytes (%) (Auto) 8.8H, Eosinophils (%) (Auto) 3.8H, Basophils (%) (Auto) 1.1H, Neutrophils # (Auto) 3.8, Lymphocytes # (Auto) 1.7, Monocytes # (Auto) 0.6, Eosinophils # (Auto) 0.2, Basophils # (Auto) 0.1, Nucleated Red Blood Cells % (auto) 0.0, Anion Gap 9, Glomerular Filtration Rate 45.5, Blood Urea Nitrogen 4L, Creatinine 1.27, Sodium Level 141, Potassium Level 3.7, Chloride Level 107, Carbon Dioxide Level 25, Calcium Level 8.8 CBC/BMP Laboratory Tests 06/10/19 06:36 Red Blood Count 3.82 L, Mean Corpuscular Volume 84.3, Mean Corpuscular Hemoglobin 28.3, Mean Corpuscular Hemoglobin Concent 33.5, Red Cell Distribution Width 13.2, Neutrophils (%) (Auto) 59.3, Lymphocytes (%) (Auto) 26.5, Monocytes (%) (Auto) 8.8 H, Eosinophils (%) (Auto) 3.8 H, Basophils (%) (Auto) 1.1 H, Neutrophils # (Auto) 3.8, Lymphocytes # (Auto) 1.7, Monocytes # (Auto) 0.6, Eosinophils # (Auto) 0.2, Basophils # (Auto) 0.1, Calcium Level 8.8 Microbiology Microbiology 06/07/19 Blood Culture - Preliminary, Resulted No Growth after 72 hours. All specime... 06/07/19 Blood Culture - Preliminary, Resulted No Growth after 72 hours. All specime... 06/09/19 Gastrointestinal Tract Panel (PCR) - Final, Complete 06/07/19 Urine Culture - Final, Complete Ge Sebastian MD Jun 10, 2019 10:58
[2019-06-10 14:00] VITALS: BP 105/55
[2019-06-10 20:00] VITALS: BP 100/56
[2019-06-10] MEDS: MICONAZOLE-7 VAGINAL 2% CREAM 47.7 GM PV SCH (20:48)
[2019-06-11] MEDS: metroNIDAZOLE 500 MG in APPROPRIATE DILUENT 1 EA IV SCH (00:44)
[2019-06-11] MEDS: PIPERACILLIN/TAZOBACTAM SOD 3.375 GM in D5W MINI-BAG PLUS 50 ML IV SCH ×2 (01:54→08:09)
[2019-06-11 04:00] VITALS: BP 92/60
[2019-06-11] MEDS: KCL 20MEQ IN 0.45NS 1000ML 1,000 ML IV SCH (04:42)
[2019-06-11 06:15] LABS: BASO # 0.1 10^3/uL (0.0-0.2); BASO % 1.5 % (0.0-1.0); EOS # 0.3 10^3/uL (0.0-0.5); EOS % 4.6 % (0.0-3.0); HEMATOCRIT 32.8 % (36.0-47.0); LYMPH % 30.3 % (24.0-44.0); MEAN CORPUSCULAR HEMOGLOBIN 28.2 pg (27.0-33.0); MEAN CORPUSCULAR HGB CONC 33.5 g/dl (32.0-36.5); MEAN CORPUSCULAR VOLUME 84.1 fl (80.0-96.0); MONO # 0.7 10^3/uL (0.0-0.8); NEUTROPHILS # 3.5 10^3/uL (1.5-8.5); NEUTROPHILS % 51.7 % (36.0-66.0); PLATELET COUNT, AUTOMATED 265 10^3/uL (150-450); WHITE BLOOD COUNT 6.7 10^3/uL (4.0-10.0)
[2019-06-11 06:54] LABS: CALCIUM LEVEL 8.7 MG/DL (8.8-10.2); CREATININE FOR GFR 1.37 MG/DL (0.55-1.30); GLOMERULAR FILTRATION RATE 41.7 (>45); POTASSIUM SERUM 3.7 MEQ/L (3.5-5.1)
[2019-06-11] MEDS: LACTOBACILLUS ACIDOPHILUS CAP (BACID) PO SCH ×2 (08:09→20:33)
[2019-06-11] MEDS: ENOXAPARIN 40 MG/0.4 ML SYRINGE (J1650) SC SCH (08:09)
--- NOTE | 2019-06-11 08:23 | IPNPDOC ---
Subjective Date Seen The patient was seen on 06/11/19. Subjective Chief Complaint/HPI Patient lying comfortably in bed as I entered the room. She reports abdominal pain to be improved. She continues to have loose stools, however, these are easing. She is tolerating diet Constitutional: Denies: Chills, Fever Pulmonary: Denies: Cough Cardiovascular: Denies: Chest Pain, Edema Gastrointestinal: Denies: Nausea, Vomiting, Abdominal Pain, Melena, Hematochezia Psych: Reports: Mood Normal Objective Physical Examination General Exam: Positive: Alert, Cooperative, No Acute Distress Eye Exam: Positive: PERRLA, Conjunctiva & lids normal, EOMI; Negative: Sclera icteric ENT Exam: Positive: Atraumatic, Mucous membr. moist/pink, Pharynx Normal Neck Exam: Positive: Supple; Negative: JVD, thyromegaly Chest Exam: Positive: Clear to auscultation, Normal air movement Heart Exam: Positive: Rate Normal, Regular Rhythm, Normal S1, Normal S2; Negative: Murmurs, Rubs Abdomen Exam: Positive: Normal bowel sounds, Soft, Tenderness (no pain, no guarding, no mass and no rebound. no pelvic shake tenderness.), Other (there is local rebound but no guaring or rigidity) Extremity Exam: Positive: Normal pulses; Negative: Clubbing, Cyanosis, Edema Skin Exam: Positive: Nl turgor and temperature; Negative: Breakdown, Lesion Neuro Exam: Positive: Normal Gait, Normal Speech, Cranial Nerves 3-12 NL Psych Exam: Positive: Mental status NL, Mood NL, Oriented x 3 Assessment /Plan Problems (1) Acute diverticulitis Status: Acute Response to Treatment: Improving Problem Text: 06/11/19: Pain has resolved. Loose stools improving and starting to become more formed. We will transition to oral abx and continue to advance diet. Hopeful for discharge tomorrow 06/10: decreasing discomfort. still some loose stool. GI panel negative. continue zosyn and metronidazole. advance diet continue zosyn, add metronidazole. diarrhea may be due to colonic irritation but concern for C diff exists so will do GI panel. her abdominal pain is clearly better than at last outpt visit and improved since admission. WBC also normal. (2) KAREEM (acute kidney injury) Status: Resolved Problem Text: 06/11/19: Renal function BUN/Cre 7/1.37, GFR 41 Likely combination of decreased po intake due to abdominal discomfort and effect of NSAID use as outpatient. Plan/VTE VTE Prophylaxis Ordered?: Yes Plan Anticipated Discharge: [facility] VS[facility]&O[facility] Vital Signs/I&O Vital Signs Date Time Temp Pulse Resp B/P (MAP) Pulse Ox O2 Delivery O2 Flow Rate FiO2 06/11/19 04:00 97.7 58 18 92/60 (71) 95 06/07/19 12:17 Room Air I&O- Last 24 Hours up to 6 AM 06/11/19 06:00 Intake Total 2520 ml Output Total 2000 ml Balance 520 ml Laboratory Data 24H LABS Laboratory Tests 2 06/11/19 05:57: Immature Granulocyte % (Auto) 0.9, White Blood Count 6.7, Red Blood Count 3.90L, Hemoglobin 11.0L, Hematocrit 32.8L, Mean Corpuscular Volume 84.1, Mean Corpuscular Hemoglobin 28.2, Mean Corpuscular Hemoglobin Concent 33.5, Red Cell Distribution Width 13.3, Platelet Count 265, Neutrophils (%) (Auto) 51.7, Lymphocytes (%) (Auto) 30.3, Monocytes (%) (Auto) 11.0H, Eosinophils (%) (Auto) 4.6H, Basophils (%) (Auto) 1.5H, Neutrophils # (Auto) 3.5, Lymphocytes # (Auto) 2.0, Monocytes # (Auto) 0.7, Eosinophils # (Auto) 0.3, Basophils # (Auto) 0.1, Nucleated Red Blood Cells % (auto) 0.0, Anion Gap 8, Glomerular Filtration Rate 41.7L, Blood Urea Nitrogen 7#, Creatinine 1.37H, Sodium Level 143, Potassium Level 3.7, Chloride Level 109H, Carbon Dioxide Level 26, Calcium Level 8.7L CBC/BMP Laboratory Tests 06/11/19 05:57 Red Blood Count 3.90 L, Mean Corpuscular Volume 84.1, Mean Corpuscular Hemoglobin 28.2, Mean Corpuscular Hemoglobin Concent 33.5, Red Cell Distribution Width 13.3, Neutrophils (%) (Auto) 51.7, Lymphocytes (%) (Auto) 30.3, Monocytes (%) (Auto) 11.0 H, Eosinophils (%) (Auto) 4.6 H, Basophils (%) (Auto) 1.5 H, Neutrophils # (Auto) 3.5, Lymphocytes # (Auto) 2.0, Monocytes # (Auto) 0.7, Eosinophils # (Auto) 0.3, Basophils # (Auto) 0.1, Calcium Level 8.7 L Microbiology Microbiology 06/07/19 Blood Culture - Preliminary, Resulted No Growth after 72 hours. All specime... 06/07/19 Blood Culture - Preliminary, Resulted No Growth after 72 hours. All specime... 06/09/19 Gastrointestinal Tract Panel (PCR) - Final, Complete 06/07/19 Urine Culture - Final, Complete ALYSSA SHERWOOD [facility] Jun 11, 2019 08:23
[2019-06-11] MEDS: metroNIDAZOLE (FLAGYL) 500 MG TAB PO SCH ×2 (09:10→17:50)
[2019-06-11 12:00] VITALS: BP 122/67
[2019-06-11] MEDS: MIRALAX *UNIT DOSE* 17GM PACKET PO PRN (17:50)
[2019-06-11] MEDS: CIPROFLOXACIN 500 MG TAB PO SCH (17:50)
[2019-06-11 20:00] VITALS: BP 113/62
[2019-06-11] MEDS: MICONAZOLE-7 VAGINAL 2% CREAM 47.7 GM PV SCH (20:33)
[2019-06-12] MEDS: metroNIDAZOLE (FLAGYL) 500 MG TAB PO SCH ×2 (01:13→09:12)
[2019-06-12] MEDS: CIPROFLOXACIN 500 MG TAB PO SCH (05:27)
[2019-06-12 05:57] VITALS: BP 114/60
[2019-06-12 07:08] LABS: BASO # 0.1 10^3/uL (0.0-0.2); BASO % 1.4 % (0.0-1.0); EOS # 0.3 10^3/uL (0.0-0.5); EOS % 4.3 % (0.0-3.0); HEMATOCRIT 35.3 % (36.0-47.0); LYMPH # 2.3 10^3/uL (1.5-5.0); MEAN CORPUSCULAR HEMOGLOBIN 28.6 pg (27.0-33.0); MEAN CORPUSCULAR VOLUME 84.2 fl (80.0-96.0); MONO # 0.7 10^3/uL (0.0-0.8); MONO % 9.4 % (0.0-5.0); NEUTROPHILS # 4.3 10^3/uL (1.5-8.5); NEUTROPHILS % 54.8 % (36.0-66.0); PLATELET COUNT, AUTOMATED 290 10^3/uL (150-450); RED BLOOD COUNT 4.19 10^6/uL (4.00-5.40); WHITE BLOOD COUNT 7.9 10^3/uL (4.0-10.0)
[2019-06-12 07:30] LABS: CALCIUM LEVEL 9.1 MG/DL (8.8-10.2); CREATININE FOR GFR 1.16 MG/DL (0.55-1.30); GLOMERULAR FILTRATION RATE 50.6 (>45); POTASSIUM SERUM 3.8 MEQ/L (3.5-5.1)
[2019-06-12] MEDS: LACTOBACILLUS ACIDOPHILUS CAP (BACID) PO SCH (09:11)
[2019-06-12] MEDS: MIRALAX *UNIT DOSE* 17GM PACKET PO PRN (09:12)
[2019-06-12] MEDS: ENOXAPARIN 40 MG/0.4 ML SYRINGE (J1650) SC SCH (09:12)
--- NOTE | 2019-06-13 16:54 | DS.PDOC ---
Discharge Summary General Date of Admission Jun 07, 2019 at 10:47 Date of Discharge May Primary Care Physician: Ge Sebastian MD Attending Physician: Ge Sebastian MD Discharge Summary Discharge Summary ADMITTING DIAGNOSES: 1. Acute diverticulitis 2. KAREEM on CKD 3. Chronic low back pain with sciatica DISCHARGE DIAGNOSES: 1. Acute Diverticulitis 2. CKD COMPLICATIONS/CHIEF COMPLAINT: Acute Diverticulitis. HISTORY OF PRESENT ILLNESS: 63 year old female with PMH of diverticulosis and diverticutitis (last attack 5 years ago), sciatica presented to the ED with abdominal pain for 12 days. She was diagnosed with diverticulitis on 05/30 and started on Augmentin. She went to see her PMD again on 03/05 when she was due for her annual check up and said her pain had not improved at all so antibiotics were changed to cipro and flagyl which she had been taking for the past 2 days but overnight her pain had worsened a lot and she could not tolerate it any more and came to the ED. CT abdomen and pelvis showed Sigmoid colon diverticulosis with CT findings of acute diverticulitis. No abscess formation was seen. Patient admitted for acute diverticulitis HOSPITAL COURSE: Patient was admitted for acute diverticulitis. She was treated with IVF, IV Zoysn and Metronidazole. She had a CT scan which demonstrated acute diverticulitis. There were also some abnormalities noted of the liver ( 1.4 cm faint ill defined right hepatic dome hyperdensity) and MRI was recommended for further evaluation. MRI was within normal limites. She also had an AFP tumor mar ker which was 1.7. This finding was believed to be a hepatic blush which is very commonly seen in contrast studies. GI panel was collected to r/o c-diff and was negative. Patient was also noted to have KAREEM which was believed to be related to decreased PO intake and her NSAID use prior to her admission. Her renal function returned to her baseline. Over the course of her hospitalization her abdominal pain improved. Her white count remained stable, she remained afebrile. She was able to advance her diet without worsening of symptoms. Her diarrhea lessened and had resolved completely by day of discharge. DISCHARGE MEDICATIONS: Please see below. ALLERGIES: Please see below. PHYSICAL EXAMINATION ON DISCHARGE: VITAL SIGNS: Please see below. GENERAL: AOx3, NAD HEENT: unremarkable NECK: soft, suppler CARDIOVASCULAR EXAMINATION: RRR RESPIRATORY EXAMINATION: CTA ABDOMINAL EXAMINATION: soft, non-tender, non-distended, good BS EXTREMITIES: no edema SKIN: no rash, warm, dry, good turgor LABORATORY DATA: Please see below. IMAGING: CT of abdomen and pelvis IMPRESSION: 1. Sigmoid colon diverticulosis with CT findings of acute diverticulitis. No abscess formation seen at this time. 2. Status post cholecystectomy. 3. Diffusely dilated CBD up to 1.1 cm with mild pancreatic ductal dilatation at 5 mm. Ampullary stricture or obstructive process cannot be excluded. Correlate with patient's symptoms, LFTs and bilirubin level. If indicated MRCP may be obtained for further evaluation. 4. 1.4 cm faint ill defined right hepatic dome hyperdensity. Further evaluation with MRI of the liver with contrast and correlation with clinical history and AFP is suggested. MRI Abdomen: IMPRESSION: MRCP is within normal limits. Maximal CBD dimension is 8 mm, which is within normal limits in this age group status post cholecystectomy. PROGNOSIS: Good ACTIVITY: As tolerated DISCHARGE PLAN: To home DISCHARGE INSTRUCTIONS: 1. Complete abx therapy for 6 more days for a total of a 10 day course 2. F/U with PCP within one week ITEMS TO FOLLOWUP ON ON OUTPATIENT: 1. F/U with GI in [place]-she will need copy of CT scans 2. F/U of the 1.4 cm faint ill defined right hepatic dome hyperdensity Vital Signs/I&Os Vital Signs Date Time Temp Pulse Resp B/P (MAP) Pulse Ox O2 Delivery O2 Flow Rate FiO2 06/12/19 05:57 98.3 64 16 114/60 (78) 94 06/07/19 12:17 Room Air I&O- Last 24 Hours up to 6 AM 06/12/19 06:00 Intake Total 1320 ml Output Total 1450 ml Balance -130 ml Laboratory Data Labs 24H Laboratory Tests 2 06/12/19 06:49: Immature Granulocyte % (Auto) 1.1, White Blood Count 7.9, Red Blood Count 4.19, Hemoglobin 12.0, Hematocrit 35.3L, Mean Corpuscular Volume 84.2, Mean Corpuscular Hemoglobin 28.6, Mean Corpuscular Hemoglobin Concent 34.0, Red Cell Distribution Width 13.5, Platelet Count 290, Neutrophils (%) (Auto) 54.8, Lymphocytes (%) (Auto) 29.0, Monocytes (%) (Auto) 9.4H, Eosinophils (%) (Auto) 4.3H, Basophils (%) (Auto) 1.4H, Neutrophils # (Auto) 4.3, Lymphocytes # (Auto) 2.3, Monocytes # (Auto) 0.7, Eosinophils # (Auto) 0.3, Basophils # (Auto) 0.1, Nucleated Red Blood Cells % (auto) 0.0, Anion Gap 7L, Glomerular Filtration Rate 50.6, Blood Urea Nitrogen 5L, Creatinine 1.16, Sodium Level 141, Potassium Level 3.8, Chloride Level 107, Carbon Dioxide Level 27, Calcium Level 9.1 CBC/BMP Laboratory Tests 06/12/19 06:49 Red Blood Count 4.19, Mean Corpuscular Volume 84.2, Mean Corpuscular Hemoglobin 28.6, Mean Corpuscular Hemoglobin Concent 34.0, Red Cell Distribution Width 13.5, Neutrophils (%) (Auto) 54.8, Lymphocytes (%) (Auto) 29.0, Monocytes (%) (Auto) 9.4 H, Eosinophils (%) (Auto) 4.3 H, Basophils (%) (Auto) 1.4 H, Neutrophils # (Auto) 4.3, Lymphocytes # (Auto) 2.3, Monocytes # (Auto) 0.7, Eosinophils # (Auto) 0.3, Basophils # (Auto) 0.1, Calcium Level 9.1 Microbiology Microbiology 06/07/19 Blood Culture - Final, Complete NO GROWTH AFTER 5 DAYS 06/07/19 Blood Culture - Final, Complete NO GROWTH AFTER 5 DAYS 06/09/19 Gastrointestinal Tract Panel (PCR) - Final, Complete 06/07/19 Urine Culture - Final, Complete Discharge Medications Scheduled Calcium Carb/Vitamin D3/Vit K1 (Viactiv 650 mg-12.5 Mcg Chew) 1 Each Tab.chew, 1 CHEW PO DAILY, (Reported) Ciprofloxacin HCl (Ciprofloxacin HCl) 500 Mg Tablet, 500 MG PO BID, (Reported) STARTED 06/05 FOR 10 DAYS Lactobacillus Acidophilus (Probiotic) 1 Each Capsule, 1 CAP PO DAILY, (Reported) Metronidazole (Metronidazole) 500 Mg Tablet, 500 MG PO TID, (Reported) STARTED 06/05 FOR 10 DAYS Scheduled PRN Aspirin/Acetaminophen/Caffeine (Excedrin Migraine Caplet) 1 Each Tablet, 2 TAB PO DAILY PRN for HEADACHE, (Reported) Diclofenac Sodium (Diclofenac Sodium) 1% 100GM Gel..gram., 1 APLCT TOP QID PRN for ARTHRITIS, (Reported) APPLY TO HAND PRN Allergies Coded Allergies: cephalexin (Verified Allergy, Mild, RASH, 06/07/19) RASH nitrofurantoin (Verified Allergy, Mild, RASH, 06/07/19) RASH betamethasone (Unverified Allergy, Unknown, RASH, 06/07/19) ALYSSA SHERWOOD [facility] Jun 12, 2019 09:29
== END 2019-06-12 11:00 | disposition home or self-care (01) | DRG 244 ==
LOC: M ED 01:26 → M ED INP 10:47 → M MS4PR 13:15
PROVIDERS: ADMIT Internal Medicine Nephrology; ATTEND Family Medicine
DX: K57.32 Diverticulitis of large intestine without perforation or abscess without bleeding (principal); N17.9 Acute kidney failure, unspecified; N18.3 Chronic kidney disease, stage 3 (moderate); K86.89 Other specified diseases of pancreas; K59.09 Other constipation; M54.40 Lumbago with sciatica, unspecified side; Z90.710 Acquired absence of both cervix and uterus; Z79.899 Other long term (current) drug therapy; Z88.1 Allergy status to other antibiotic agents; Z90.49 Acquired absence of other specified parts of digestive tract; Z88.8 Allergy status to other drugs, medicaments and biological substances

== ENCOUNTER → 2019-06-30 | Outpatient (CLI) | payer BC ==
--- NOTE | 2019-06-30 15:10 | REPMRS ---
Patient History The patient states she has not had a clinical breast exam in over a year. Patient is postmenopausal. Family history of breast cancer at age 50 or over in mother, breast cancer in paternal cousin. Benign excisional biopsy of the left breast. Took hormonal contraceptives for 2 years. 3D TOMOSYNTHESIS WAS PERFORMED. The [facility] lifetime risk for breast cancer is 16.3%. Digital Woman Screen Mammo: June 30, 2019 - Exam #: [id number] Bilateral CC and MLO view(s) were taken. Technologist: Eloisa Matta, Technologist Prior study comparison: June 07, 2018, bilateral digital woman screen mammo performed at [facility]. June 07, 2017, digital woman screen mammo performed at [facility]. FINDINGS: The breast tissue is heterogeneously dense. This may lower the sensitivity of mammography. There has been no change in the appearance of the mammogram from the prior studies. There is a moderate amount of residual fibroglandular tissue which is fairly symmetric. There is no interval development of dominant mass, areas of architectural distortion, or clustered microcalcification typical of malignancy. Assessment: BI-RADS/ACR category 1 mammogram. Negative Mammogram. Recommendation Routine screening mammogram in 1 year (for women over age 40). This mammogram was interpreted with the aid of an FDA-approved computer-aided dectection system. Electronically Signed By: Gato Aranda MD 06/30/19 0028
== END ==
LOC: M WHC 14:11
PROVIDERS: ATTEND Family Medicine
DX: Z12.31 Encounter for screening mammogram for malignant neoplasm of breast (principal)

== ENCOUNTER → 2020-07-07 | Outpatient (CLI) | payer BC ==
--- NOTE | 2020-07-08 09:43 | REPMRS ---
Patient History The patient states she has not had a clinical breast exam in over a year. Family history of breast cancer at age 50 or over in mother, breast cancer in paternal cousin. Benign excisional biopsy of the left breast. Took hormonal contraceptives for 2 years. Digital Woman Screen Mammo: July 07, 2020 - Exam #: [id number] Bilateral CC and MLO view(s) were taken. Technologist: Eloisa Matta, Technologist Prior study comparison: June 30, 2019, bilateral digital woman screen mammo performed at [facility]. June 07, 2018, bilateral digital woman screen mammo performed at [facility]. June 07, 2017, digital woman screen mammo performed at [facility]. FINDINGS: There are scattered fibroglandular densities. The Volpara volumetric breast density category is:B. There is a grouping of microcalcifications in the left breast anterior 3rd laterally at approximately the 3 o'clock position. This merits further evaluation. There has been no other change in the appearance of the mammogram from the prior studies. There is a mild amount of scattered fibroglandular density which is fairly symmetric. There is no other interval development of dominant mass, architectural distortion, or grouped microcalcification suggestive of malignancy. 3-D tomosynthesis shows no additional findings. Assessment: BI-RADS/ACR category 0 mammogram, Incomplete. Need additonal imaging evaluation and/or prior mammograms for comparison. Recommendation Special view mammogram of the left breast (for women over age 40). This patient's Lifetime Breast Cancer Risk is estimated at 15.2 %. This mammogram was interpreted with the aid of an FDA-approved computer-aided dectection system. Electronically Signed By: Sal Weiss MD 07/08/20 0943
== END ==
LOC: M WHC 14:53
PROVIDERS: ATTEND Family Medicine
DX: Z12.31 Encounter for screening mammogram for malignant neoplasm of breast (principal); Z80.3 Family history of malignant neoplasm of breast; R92.0 Mammographic microcalcification found on diagnostic imaging of breast

== ENCOUNTER → 2020-07-14 | Outpatient (CLI) | payer BC ==
--- NOTE | 2020-07-14 10:52 | REP ---
INDICATION: ADDITIONAL VIEWS LT BREAST. COMPARISON: 07/07/2020 TECHNIQUE: Magnification views left breast performed in the MLO, mL and CC projections. FINDINGS: The magnification views confirm the presence of a cluster of pleomorphic microcalcifications in the outer left breast anteriorly. These are somewhat suspicious. IMPRESSION: BIRADS/ACR category 4 suspicious. Clustered microcalcifications anterolateral left breast. This mammogram was interpreted with the aid of an FDA-approved computer-aided detection system. The patient letter being requested is M 4. RECOMMENDATION: Recommend stereotactic biopsy left breast. <Electronically signed by Gato Aranda > 07/14/20 1049
== END ==
LOC: M WHC 10:18
PROVIDERS: ATTEND Family Medicine
DX: R92.8 Other abnormal and inconclusive findings on diagnostic imaging of breast (principal)

== ENCOUNTER → 2021-03-03 | Outpatient (REF) | payer BC ==
[2021-03-03 16:34] LABS: HEMATOCRIT 42.1 % (36.0-47.0); HEMOGLOBIN 13.9 g/dl (12.0-15.5); MEAN CORPUSCULAR HEMOGLOBIN 28.9 pg (27.0-33.0); MEAN CORPUSCULAR VOLUME 87.5 fl (80.0-96.0); PLATELET COUNT, AUTOMATED 249 10^3/uL (150-450); RED BLOOD COUNT 4.81 10^6/uL (4.00-5.40); WHITE BLOOD COUNT 6.9 10^3/uL (4.0-10.0)
[2021-03-03 17:04] LABS: BILIRUBIN,TOTAL 0.6 MG/DL (0.2-1.0); CALCIUM LEVEL 9.3 MG/DL (8.8-10.2); CHOLESTEROL RISK RATIO 2.614 (<5); CREATININE FOR GFR 1.18 MG/DL (0.55-1.30); GLOMERULAR FILTRATION RATE 49.2 (>45); POTASSIUM SERUM 4.6 MEQ/L (3.5-5.1); THYROID STIMULATING HORMONE 0.934 uIU/ML (0.358-3.740); TOTAL PROTEIN 7.5 GM/DL (6.4-8.2)
[2021-03-03 17:08] LABS: TOTAL 25(OH) VITAMIN D 23.8 NG/ML (30.0-100.0)
== END ==
LOC: M SFHCCLAY 11:33
PROVIDERS: ATTEND Family Medicine
DX: Z00.00 Encounter for general adult medical examination without abnormal findings (principal); K57.30 Diverticulosis of large intestine without perforation or abscess without bleeding; E78.00 Pure hypercholesterolemia, unspecified; M85.80 Other specified disorders of bone density and structure, unspecified site; K21.9 Gastro-esophageal reflux disease without esophagitis

== ENCOUNTER → 2021-07-08 | Outpatient (CLI) | payer BC ==
--- NOTE | 2021-07-08 12:19 | REPMRS ---
Patient History The patient states she has not had a clinical breast exam in over a year. Family history of breast cancer at age 50 or over in mother, breast cancer in paternal cousin. Benign biopsy of the left breast July,. Took hormonal contraceptives for 2 years. Tomosynthesis is performed. [facility]para breast [facility] b[facility] 20 lb unintentional weight gain. Covid vaccines 12/08/20 left arm. 01/05/21 left arm. Patient states no breast complaints today. Patient has signed MRS History Sheet. Digital Woman Screen Mammo: July 08, 2021 - Exam #: [id number] Bilateral CC and MLO view(s) were taken. Technologist: RT Princess Prior study comparison: July 14, 2020, left breast diagnostic unilateral mammo performed at [facility]. July 07, 2020, bilateral digital woman screen mammo performed at [facility]. FINDINGS: The breast tissue is heterogeneously dense. This may lower the sensitivity of mammography. There has been no change in the appearance of the mammogram from the prior studies. There is a moderate amount of residual fibroglandular tissue which is fairly symmetric. There is no interval development of dominant mass, areas of architectural distortion, or clustered microcalcification typical of malignancy. Assessment: BI-RADS/ACR category 1 mammogram. Negative Mammogram. Recommendation Routine screening mammogram in 1 year (for women over age 40). This mammogram was interpreted with the aid of an FDA-approved computer-aided dectection system. Electronically Signed By: Gato Aranda MD 07/08/21 [id number]
== END ==
LOC: M WHC 10:50
PROVIDERS: ATTEND Family Medicine
DX: Z12.31 Encounter for screening mammogram for malignant neoplasm of breast (principal)

== ENCOUNTER → 2022-03-01 | Outpatient (REF) | payer BC ==
[~2022-03-01] MED LIST changes: +EXCETAB32 PO; -EXCETAB33 PO
[2022-03-01 11:50] LABS: HEMATOCRIT 40.9 % (36.0-47.0); HEMOGLOBIN 13.6 g/dl (12.0-15.5); MEAN CORPUSCULAR HEMOGLOBIN 28.8 pg (27.0-33.0); MEAN CORPUSCULAR HGB CONC 33.3 g/dl (32.0-36.5); MEAN CORPUSCULAR VOLUME 86.7 fl (80.0-96.0); PLATELET COUNT, AUTOMATED 245 10^3/uL (150-450); RED BLOOD COUNT 4.72 10^6/uL (4.00-5.40); WHITE BLOOD COUNT 7.3 10^3/uL (4.0-10.0)
[2022-03-01 12:29] LABS: ALBUMIN 3.5 GM/DL (3.2-5.2); BILIRUBIN,TOTAL 0.4 MG/DL (0.2-1.0); CREATININE FOR GFR 1.39 MG/DL (0.55-1.30); GLOMERULAR FILTRATION RATE 40.6 (>45); POTASSIUM SERUM 4.4 MEQ/L (3.5-5.1); THYROID STIMULATING HORMONE 1.9 uIU/ML (0.358-3.740); TOTAL PROTEIN 6.7 GM/DL (6.4-8.2)
== END ==
LOC: M SFHCCLAY 08:02
PROVIDERS: ATTEND Family Medicine
DX: K57.30 Diverticulosis of large intestine without perforation or abscess without bleeding (principal); E78.00 Pure hypercholesterolemia, unspecified; M85.80 Other specified disorders of bone density and structure, unspecified site; K21.9 Gastro-esophageal reflux disease without esophagitis

== ENCOUNTER → 2022-03-08 | Outpatient (REF) | payer BC ==
[2022-03-08 16:27] LABS: APPEARANCE, URINE CLEAR (CLEAR); BACTERIA, URINE AUTO NEGATIVE (NEGATIVE); BILIRUBIN, URINE AUTO NEGATIVE (NEGATIVE); BLOOD, URINE BLOOD NEGATIVE (NEGATIVE); COLOR, URINE YELLOW (YELLOW); GLUCOSE, URINE (UA) AUTO NEGATIVE (NEGATIVE); KETONE, URINE AUTO 1+ mg/dL (NEGATIVE); LEUKOCYTE ESTERASE, URINE AUTO 2+ (NEGATIVE); MUCUS, URINE SMALL (NEGATIVE); NITRITE, URINE AUTO NEGATIVE (NEGATIVE); PROTEIN, URINE AUTO NEGATIVE (NEGATIVE); RBC, URINE AUTO 5 /HPF (0-3); SPECIFIC GRAVITY URINE AUTO 1.021 (1.002-1.035); SQUAMOUS EPITHELIAL CELL UR AU 1 /HPF (0-6); UROBILINOGEN, URINE AUTO 0.2 mg/dL (0.0-2.0); WBC, URINE AUTO 0 /HPF (0-3)
[2022-03-08 16:57] LABS: C REACTIVE PROTEIN QUANTITATIV 0.3 MG/DL (0.00-0.30); CREATININE FOR GFR 1.31 MG/DL (0.55-1.30); GLOMERULAR FILTRATION RATE 43.5 (>45); POTASSIUM SERUM 4.7 MEQ/L (3.5-5.1)
== END ==
LOC: M SFHCCLAY 11:34
PROVIDERS: ATTEND Family Medicine
DX: N18.31 Chronic kidney disease, stage 3a (principal); H61.23 Impacted cerumen, bilateral

== ENCOUNTER → 2022-03-28 | Outpatient (CLI) | payer BC | LOC: M RAD 09:42 | PROVIDERS: ATTEND Family Medicine | DX: N18.31 Chronic kidney disease, stage 3a (principal) ==

== ENCOUNTER 2022-06-12 05:32 | Emergency (ER) | payer BC ==
[~2022-06-12] VITALS: Ht 162.6 cm; Wt 64.1 kg
[2022-06-12] MEDS ORDERED: MAGN400T2 PO (06:08)
[2022-06-12] MEDS ORDERED: ROPI2TAB24 PO (06:08)
[2022-06-12 07:28] LABS: BASO # 0.1 10^3/uL (0.0-0.2); BASO % 1.3 % (0.0-1.0); EOS # 0.1 10^3/uL (0.0-0.5); EOS % 1.7 % (0.0-3.0); HEMATOCRIT 40.4 % (36.0-47.0); HEMOGLOBIN 13.3 g/dl (12.0-15.5); LYMPH # 1.5 10^3/uL (1.5-5.0); LYMPH % 19.7 % (24.0-44.0); MEAN CORPUSCULAR HEMOGLOBIN 28.4 pg (27.0-33.0); MEAN CORPUSCULAR HGB CONC 32.9 g/dl (32.0-36.5); MEAN CORPUSCULAR VOLUME 86.3 fl (80.0-96.0); MONO # 0.7 10^3/uL (0.0-0.8); MONO % 8.8 % (2.0-8.0); NEUTROPHILS # 5.2 10^3/uL (1.5-8.5); PLATELET COUNT, AUTOMATED 253 10^3/uL (150-450); RED BLOOD COUNT 4.68 10^6/uL (4.00-5.40); WHITE BLOOD COUNT 7.7 10^3/uL (4.0-10.0)
[2022-06-12 07:59] LABS: ALBUMIN 3.2 GM/DL (3.2-5.2); BILIRUBIN,DIRECT 0.1 MG/DL (0.0-0.2); BILIRUBIN,TOTAL 0.5 MG/DL (0.2-1.0); CALCIUM LEVEL 9.6 MG/DL (8.8-10.2); CREATININE FOR GFR 1.32 MG/DL (0.55-1.30); GLOMERULAR FILTRATION RATE 43.1 (>45); POTASSIUM SERUM 4.3 MEQ/L (3.5-5.1); TOTAL PROTEIN 6.8 GM/DL (6.4-8.2)
[2022-06-12] MEDS: GASTROGRAFIN SOLUTION 30ML PO SCH ×2 (09:36→10:00)
[2022-06-12] MEDS ORDERED: ISOVUE-370 76% 100ML VIAL As Ordered ONE (10:48)
[2022-06-12 13:28] VITALS: BP 132/76
== END 2022-06-12 13:35 | disposition home or self-care (01) ==
LOC: M ED 05:32
DX: K57.30 Diverticulosis of large intestine without perforation or abscess without bleeding (principal); Z88.8 Allergy status to other drugs, medicaments and biological substances
CPT/HCPCS: 36415; 74177; 80048; 80076; 83690; 85025; 93005; 99284; Q9963; Q9967

== ENCOUNTER → 2022-06-14 | Outpatient (REF) | payer BC ==
[~2022-06-14] MED LIST changes: +MAGN400T2 PO; +ROPI2TAB24 PO
== END ==
LOC: M SFHCCLAY 13:23
PROVIDERS: ATTEND Physician Assistant
DX: R30.0 Dysuria (principal)

== ENCOUNTER → 2022-06-15 | Outpatient (REF) | payer BC | LOC: M SFHCCLAY 11:08 | PROVIDERS: ATTEND Physician Assistant | DX: R19.7 Diarrhea, unspecified (principal) ==

== ENCOUNTER → 2022-06-27 | Outpatient (CLI) | payer BC, MEDICARE | LOC: M WHC 10:59 | PROVIDERS: ATTEND Family Medicine | DX: Z12.31 Encounter for screening mammogram for malignant neoplasm of breast (principal) ==

== ENCOUNTER → 2022-07-13 | Outpatient (REF) | payer MEDICARE ==
[2022-07-13 19:25] LABS: TOTAL PROTEIN 7.3 GM/DL (6.4-8.2)
== END ==
LOC: M LAB REF 16:52
PROVIDERS: ATTEND Internal Medicine Nephrology
DX: N18.31 Chronic kidney disease, stage 3a (principal)

== ENCOUNTER → 2023-03-07 | Outpatient (REF) | payer MEDICARE ==
[2023-03-07 11:35] LABS: HEMATOCRIT 39.5 % (36.0-47.0); HEMOGLOBIN 12.9 g/dl (12.0-15.5); MEAN CORPUSCULAR HEMOGLOBIN 28.3 pg (27.0-33.0); MEAN CORPUSCULAR HGB CONC 32.7 g/dl (32.0-36.5); MEAN CORPUSCULAR VOLUME 86.6 fl (80.0-96.0); PLATELET COUNT, AUTOMATED 280 10^3/uL (150-450); RED BLOOD COUNT 4.56 10^6/uL (4.00-5.40); WHITE BLOOD COUNT 6.5 10^3/uL (4.0-10.0)
[2023-03-07 11:38] LABS: ALBUMIN 3.5 G/DL (3.2-5.2); BILIRUBIN,TOTAL 0.5 MG/DL (0.3-1.2); CALCIUM LEVEL 9.1 MG/DL (8.3-10.6); CHOLESTEROL RISK RATIO 2.82 (<5); CREATININE FOR GFR 1.2 MG/DL (0.55-1.30); FREE T4 1.17 NG/DL (0.89-1.76); HDL CHOLESTEROL 73.3 MG/DL (>40); LDL CHOLESTEROL 117.5 MG/DL (<100); NON-HDL-C 133.7 MG/DL; POTASSIUM SERUM 4.4 MMOL/L (3.5-5.1); THYROID STIMULATING HORMONE 1.139 uIU/ML (0.55-4.78); TOTAL PROTEIN 6.5 G/DL (5.7-8.2)
== END ==
LOC: M SFHCCLAY 07:28
PROVIDERS: ATTEND Family Medicine
DX: K57.30 Diverticulosis of large intestine without perforation or abscess without bleeding (principal); E78.00 Pure hypercholesterolemia, unspecified; M85.80 Other specified disorders of bone density and structure, unspecified site; K21.9 Gastro-esophageal reflux disease without esophagitis

== ENCOUNTER → 2023-04-17 | Outpatient (CLI) | payer MEDICARE ==
[~2023-04-17] MED LIST changes: +GASTROGRAFIN SOLUTION 30ML ONE; +ISOVUE-370 76% 100ML VIAL ONE
== END ==
LOC: M PLAIMG 11:37
PROVIDERS: ATTEND Family Medicine
DX: R10.84 Generalized abdominal pain (principal); Z90.49 Acquired absence of other specified parts of digestive tract
CPT/HCPCS: 74178; Q9963; Q9967

== ENCOUNTER → 2023-06-28 | Outpatient (CLI) | payer MEDICARE ==
[~2023-06-28] MED LIST changes: +DICL100G10 TOP; -DICL1GEL3 TOP; -GASTROGRAFIN SOLUTION 30ML ONE; -ISOVUE-370 76% 100ML VIAL ONE
== END ==
LOC: M WHC 12:48
PROVIDERS: ATTEND Family Medicine
DX: Z12.31 Encounter for screening mammogram for malignant neoplasm of breast (principal)

== ENCOUNTER → 2024-03-25 | Outpatient (CLI) | payer MEDICARE | LOC: M CLY 07:56 | PROVIDERS: ATTEND Family Medicine | DX: M25.512 Pain in left shoulder (principal) ==

== ENCOUNTER → 2024-03-25 | Outpatient (REF) | payer MEDICARE ==
[2024-03-25 11:57] LABS: ALBUMIN 3.8 G/DL (3.2-5.2); BILIRUBIN,TOTAL 0.5 MG/DL (0.3-1.2); CALCIUM LEVEL 9.5 MG/DL (8.3-10.6); CHOLESTEROL RISK RATIO 3.29 (<5); CREATININE FOR GFR 1.27 MG/DL (0.55-1.30); GLOMERULAR FILTRATION RATE 44.8 (>45); HDL CHOLESTEROL 69.4 MG/DL (>40); HEMATOCRIT 42.4 % (36.0-47.0); HEMOGLOBIN 14.2 g/dl (12.0-15.5); LDL CHOLESTEROL 146.8 MG/DL (<100); MEAN CORPUSCULAR HEMOGLOBIN 28.8 pg (27.0-33.0); MEAN CORPUSCULAR HGB CONC 33.5 g/dl (32.0-36.5); NON-HDL-C 159.6 MG/DL; PLATELET COUNT, AUTOMATED 245 10^3/uL (150-450); POTASSIUM SERUM 4.4 MMOL/L (3.5-5.1); RED BLOOD COUNT 4.93 10^6/uL (4.00-5.40); TOTAL PROTEIN 6.8 G/DL (5.7-8.2); WHITE BLOOD COUNT 7.1 10^3/uL (4.0-10.0)
== END ==
LOC: M SFHCCLAY 07:24
PROVIDERS: ATTEND Family Medicine
DX: Z90.49 Acquired absence of other specified parts of digestive tract (principal); R10.84 Generalized abdominal pain; K57.30 Diverticulosis of large intestine without perforation or abscess without bleeding; E78.00 Pure hypercholesterolemia, unspecified; M85.80 Other specified disorders of bone density and structure, unspecified site; K21.9 Gastro-esophageal reflux disease without esophagitis

== ENCOUNTER → 2024-06-30 | Outpatient (CLI) | payer MEDICARE | LOC: M WHC 13:49 | PROVIDERS: ATTEND Family Medicine | DX: Z12.31 Encounter for screening mammogram for malignant neoplasm of breast (principal) ==

== ENCOUNTER → 2024-07-10 | Outpatient (CLI) | payer MEDICARE | LOC: M WHC 14:32 | PROVIDERS: ATTEND Family Medicine | DX: R92.8 Other abnormal and inconclusive findings on diagnostic imaging of breast (principal); Z53.9 Procedure and treatment not carried out, unspecified reason ==

== ENCOUNTER → 2024-07-10 | Outpatient (CLI) | payer MEDICARE | LOC: M WHC 09:53 | PROVIDERS: ATTEND Family Medicine | DX: Z12.31 Encounter for screening mammogram for malignant neoplasm of breast (principal); N64.9 Disorder of breast, unspecified | CPT/HCPCS: 77066; G0279 ==

== ENCOUNTER → 2024-07-17 | Outpatient (CLI) | payer MEDICARE ==
[2024-07-17 11:12] VITALS: TEMP 99.5
[2024-07-17 12:10] VITALS: BP 118/78; O2SAT 100
== END ==
LOC: M WHCPRO 10:46
PROVIDERS: ATTEND Family Medicine
DX: R92.8 Other abnormal and inconclusive findings on diagnostic imaging of breast (principal); N63.10 Unspecified lump in the right breast, unspecified quadrant; C50.911 Malignant neoplasm of unspecified site of right female breast

== ENCOUNTER 2025-04-20 07:56 | Day surgery (SDC) | payer MEDICARE ==
[~2025-04-20] VITALS: Ht 162.6 cm; Wt 65.3 kg
[~2025-04-20 07:56] MED LIST changes: +ANAS1TAB2 PO; +ZALE10CA
[2025-04-20 09:03] VITALS: TEMP 97.1
[2025-04-20 09:19] VITALS: BP 116/64; O2SAT 97
== END 2025-04-20 09:40 | disposition home or self-care (01) ==
LOC: M OPP 07:56
PROVIDERS: ATTEND Internal Medicine Gastroenterology
DX: D12.4 Benign neoplasm of descending colon (principal); K57.30 Diverticulosis of large intestine without perforation or abscess without bleeding; K64.8 Other hemorrhoids; Z98.0 Intestinal bypass and anastomosis status; Z88.8 Allergy status to other drugs, medicaments and biological substances; Z79.899 Other long term (current) drug therapy

== ENCOUNTER → 2025-04-29 | Outpatient (CLI) | payer MEDICARE | LOC: M CLY 15:37 | PROVIDERS: ATTEND Physician Assistant | DX: M51.362 Other intervertebral disc degeneration, lumbar region with discogenic back pain and lower extremity pain (principal) ==

== ENCOUNTER → 2025-05-01 | Outpatient (REF) | payer MEDICARE ==
[2025-05-01 14:08] LABS: ALT/SGPT 16.0 U/L (7.0-40); AST/SGOT 25.0 U/L (<34); CALCIUM LEVEL 9.6 MG/DL (8.3-10.6); CARBON DIOXIDE LEVEL 27.0 MMOL/L (20-31); CHLORIDE LEVEL 103.0 MMOL/L (98-107); CHOLESTEROL LEVEL 228.0 MG/DL (<200); CHOLESTEROL RISK RATIO 3.38 (<5); CREATININE FOR GFR 1.29 MG/DL (0.55-1.30); GLOMERULAR FILTRATION RATE 45.5 (>45); LDL CHOLESTEROL 143.4 MG/DL (<100); NON-HDL-C 160.6 MG/DL; POTASSIUM SERUM 4.2 MMOL/L (3.5-5.1); SODIUM LEVEL 139.0 MMOL/L (136-145); TRIGLYCERIDES LEVEL 86.0 MG/DL (<150)
[2025-05-01 14:09] LABS: FREE T4 1.36 NG/DL (0.89-1.76); VITAMIN B12 LEVEL 259.0 PG/ML (211-911)
[2025-05-01 15:44] LABS: ESTIMATED AVERAGE GLUCOSE 111.0 MG/DL (60-110)
== END ==
LOC: M SFHCCLAY 07:04
PROVIDERS: ATTEND Physician Assistant
DX: E78.00 Pure hypercholesterolemia, unspecified (principal); F51.01 Primary insomnia; N18.31 Chronic kidney disease, stage 3a; G62.9 Polyneuropathy, unspecified; Z79.899 Other long term (current) drug therapy

== ENCOUNTER → 2025-07-20 | Outpatient (CLI) | payer MEDICARE | LOC: M WHC 10:07 | PROVIDERS: ATTEND Internal Medicine Hematology | DX: C50.311 Malignant neoplasm of lower-inner quadrant of right female breast (principal); R92.323 Mammographic fibroglandular density, bilateral breasts | CPT/HCPCS: 77066; G0279 ==